=== PATIENT | female | born 1975 | race American Indian/Alaskan Native ===

== ENCOUNTER 2016-06-13 04:58 | Emergency (ER) | payer OTHER ==
[2016-06-13] MEDS ORDERED: CATAPRES ONE (05:39)
[2016-06-13] MEDS ORDERED: CATAPRES PO ONE ×2 (05:41→09:44)
--- NOTE | 2016-06-13 10:05 | XRay Report ---
Chest 2 views: History: Chest tightness shortness of breath. Findings: Normal cardiomediastinal silhouette. Trachea is midline. No consolidation, pneumothorax or pleural effusion. Impression: No acute cardiopulmonary findings.
[2016-06-13 10:38] LABS: Basophils % (Auto) 1.2 % (0.0-1.8); Eosinophils % (Auto) 5.4 % (0.0-4.3); Hematocrit 34.5 % (30.3-42.9); Hemoglobin 10.7 gm/dl (10.1-14.3); Mean Corpuscular HGB Conc 31 % (30-34); Mean Corpuscular Volume 78 fl (79-97); Platelet Count 463 K/mm3 (140-440); Red Blood Count 4.41 M/mm3 (3.65-5.03); White Blood Count 11.4 K/mm3 (4.5-11.0)
[2016-06-13 10:46] LABS: Mean Corpuscular Hemoglobin 24 pg (28-32); Red Cell Distribution Width 20.5 % (13.2-15.2)
[2016-06-13 10:54] LABS: Anion Gap 17 mmol/L; BUN/Creatinine Ratio 12.85; Blood Urea Nitrogen 9 mg/dL (7-17); Calcium 9.4 mg/dL (8.4-10.2); Carbon Dioxide 26 mmol/L (22-30); Chloride 95.9 mmol/L (98-107); Glucose 100 mg/dL (65-100); Sodium 135 mmol/L (137-145)
--- NOTE | 2016-06-13 11:23 | Emergency Department Report ---
HPI - General Chief Complaint: Upper Respiratory Infection Time Seen by Provider: 06/13/16 09:31 - HPI HPI: 41-year-old female presents today with cough, sore throat and associated chest tightness 3 days. Patient states this started as a dry cough 3 days ago and worsened yesterday with yellow-clear sputum. Patient was seen by primary care provider yesterday and diagnosed with an upper respiratory tract infection. She was given Augmentin and Tessalon Perles without relief. The patient also states that prior to primary care visit she was taking Cetrizine hydrochloride 10 mg and Proair for her dry cough. Patient states her cough is not allowing her to sleep. Denies fever, chills, chest pain, shortness of breath, abdominal pain, nausea, vomiting. Positive for history of hypertension and states her last dose of medication was this morning. Patient is currently on Losartan Potassium 50 mg by mouth daily and HCTZ 12.5 mg by mouth daily. Denies headache , visual changes, dizziness or confusion. ED Past Medical Hx - Past Medical History Previous Medical History?: Yes Hx Hypertension: Yes Hx Asthma: Yes Additional medical history: High cholesterol - Surgical History Past Surgical History?: Yes Additional Surgical History: Tubaligation, T&A - Social History Smoking Status: Never Smoker Substance Use Type: None - Medications Home Medications: Home Medications Medication Instructions Recorded Confirmed Last Taken Type Hydrochlorothiazide [Hctz] 25 mg PO DAILY 09/27/13 09/27/13 Unknown History Promethazine/Dextromethorphan 473 ml PO Q6H #1 bottle 06/13/16 Unknown Rx [Promethazine-Dm Solution] ED Review of Systems ROS: Stated complaint: ASTHMA Other details as noted in HPI Constitutional: denies: chills, fever, malaise Eyes: denies: eye pain ENT: throat pain, congestion. denies: ear pain Respiratory: cough. denies: shortness of breath, wheezing Cardiovascular: denies: chest pain, palpitations Endocrine: no symptoms reported Gastrointestinal: denies: abdominal pain, nausea, vomiting Skin: denies: rash Neurological: denies: headache, weakness Physical Exam - Physical Exam Vital Signs: Vital Signs 06/13/16 06/13/16 06/13/16 05:06 05:45 06:16 Temperature 98.9 F Pulse Rate 100 H 100 H 100 H Respiratory 20 Rate Blood Pressure 185/134 185/134 Blood Pressure 185/134 [Left] Blood Pressure 186/123 [Right] O2 Sat by Pulse 99 Oximetry 06/13/16 06/13/16 06/13/16 09:32 10:06 11:10 Temperature 98.4 F Pulse Rate 92 H 92 H 88 Respiratory 16 18 Rate Blood Pressure 167/139 Blood Pressure [Left] Blood Pressure 167/139 163/113 [Right] O2 Sat by Pulse 98 100 Oximetry Physical Exam: GENERAL: The patient is well-developed and well-nourished. Patient is in NAD. HEAD: Normocephalic. Atraumatic. EYES: PERRL. EARS: External auditory canals and tympanic membranes clear; hearing grossly intact. NOSE: Normal nasal mucosa with no nasal discharge. Mildly tender upon palpation of the maxillary sinuses. THROAT: No erythema, swelling or exudates. NECK: Supple, nontender, without lymphadenopathy. CHEST/LUNGS: Clear to auscultation throughout. HEART/CARDIOVASCULAR: Regular rate and rhythm. No murmurs, rubs or gallops. ABDOMEN: Abdomen is soft, nontender. Bowel sounds normoactive. No guarding or rebound tenderness. EXTREMITIES: Peripheral pulses intact. Capillary refill less than 2 seconds. NEURO: Alert and oriented x 3. Normal gait. ED Course Vital Signs 06/13/16 06/13/16 06/13/16 05:06 05:45 06:16 Temperature 98.9 F Pulse Rate 100 H 100 H 100 H Respiratory 20 Rate Blood Pressure 185/134 185/134 Blood Pressure 185/134 [Left] Blood Pressure 186/123 [Right] O2 Sat by Pulse 99 Oximetry 06/13/16 06/13/16 06/13/16 09:32 10:06 11:10 Temperature 98.4 F Pulse Rate 92 H 92 H 88 Respiratory 16 18 Rate Blood Pressure 167/139 Blood Pressure [Left] Blood Pressure 167/139 163/113 [Right] O2 Sat by Pulse 98 100 Oximetry ED Medical Decision Making - Lab Data Result diagrams: 06/13/16 10:02 06/13/16 10:02 Vital Signs 06/13/16 06/13/16 06/13/16 05:06 05:45 06:16 Temperature 98.9 F Pulse Rate 100 H 100 H 100 H Respiratory 20 Rate Blood Pressure 185/134 185/134 Blood Pressure 185/134 [Left] Blood Pressure 186/123 [Right] O2 Sat by Pulse 99 Oximetry 06/13/16 06/13/16 06/13/16 09:32 10:06 11:10 Temperature 98.4 F Pulse Rate 92 H 92 H 88 Respiratory 16 18 Rate Blood Pressure 167/139 Blood Pressure [Left] Blood Pressure 167/139 163/113 [Right] O2 Sat by Pulse 98 100 Oximetry 06/13/16 13:12 Temperature Pulse Rate 78 Respiratory 16 Rate Blood Pressure Blood Pressure [Left] Blood Pressure 173/107 [Right] O2 Sat by Pulse 100 Oximetry Lab Results 06/13/16 06/13/16 06/13/16 Range/Units 10:02 10:02 10:02 WBC 11.4 H (4.5-11.0) K/mm3 RBC 4.41 (3.65-5.03) M/mm3 Hgb 10.7 (10.1-14.3) gm/dl Hct 34.5 (30.3-42.9) % MCV 78 L (79-97) fl MCH 24 L (28-32) pg MCHC 31 (30-34) % RDW 20.5 H (13.2-15.2) % Plt Count 463 H (140-440) K/mm3 Lymph % (Auto) 20.6 (13.4-35.0) % [place] % (Auto) 7.0 (0.0-7.3) % Eos % (Auto) 5.4 H (0.0-4.3) % Baso % (Auto) 1.2 (0.0-1.8) % Lymph # 2.3 (1.2-5.4) K/mm3 [place] # 0.8 (0.0-0.8) K/mm3 Eos # 0.6 H (0.0-0.4) K/mm3 Baso # 0.1 (0.0-0.1) K/mm3 Seg Neutrophils % 65.8 (40.0-70.0) % Seg Neutrophils # 7.5 (1.8-7.7) K/mm3 Sodium 135 L (137-145) mmol/L Potassium 4.0 (3.6-5.0) mmol/L Chloride 95.9 L (98-107) mmol/L Carbon Dioxide 26 (22-30) mmol/L Anion Gap 17 mmol/L BUN 9 (7-17) mg/dL Creatinine 0.7 (0.7-1.2) mg/dL Estimated GFR > 60 ml/min BUN/Creatinine Ratio 12.85 % Glucose 100 (65-100) mg/dL Calcium 9.4 (8.4-10.2) mg/dL Total Creatine Kinase 306 H (30-135) units/L CK-MB (CK-2) 2.6 (0.0-4.0) ng/mL CK-MB (CK-2) Rel Index 0.8 (0-4) Troponin T < 0.010 (0.00-0.029) ng/mL - Radiology Data Radiology results: report reviewed Chest x-ray: Normal cardiomediastinal also wet. Trachea is midline. No consolidation, pneumothorax or pleural effusion. - Medical Decision Making 41-year-old female presents today with sore throat, cough and cough associated chest tightness. Patient is currently taking Augmentin and Tessalon Perles. The patient's blood pressure at the time of arrival was 185/134. Patient has been given clonidine 0.2 mg. Her chest x-ray results are negative. Discussed patient's lab results with Dr. Cornelius, who is comfortable with discharging patient home as long as the blood pressure is trending down since she is asymptomatic. Patient is highly recommended to follow up with her primary care provider for change in blood pressure medication. She is recommended to take her blood pressure medications as prescribed. Patient is in no acute distress at this time. She will be discharged home and is encouraged to follow up with a primary care provider. She is recommended to continue her Augmentin and discontinue Tessalon Perles. She will be sent home on cough medicine and is encouraged to return to the emergency room for any worsening symptoms. Critical care attestation.: If time is entered above; I have spent that time in minutes in the direct care of this critically ill patient, excluding procedure time. ED Disposition Clinical Impression: URI (upper respiratory infection) Qualifiers: URI type: unspecified URI Qualified Code(s): J06.9 - Acute upper respiratory infection, unspecified HTN (hypertension) Qualifiers: Hypertension type: essential hypertension Qualified Code(s): I10 - Essential ( primary) hypertension Disposition: DISCHARGED TO HOME OR SELFCARE Is pt being admited?: No Does the pt Need Aspirin: No Condition: Stable Instructions: Hypertension (ED), Upper Respiratory Infection (ED) Additional Instructions: Follow-up with primary care provider. Return to the emergency department if symptoms worsen. Prescriptions: Promethazine/Dextromethorphan [Promethazine-Dm Solution] 473 ml PO Q6H #1 bottle Referrals: PRIMARY CARE, [Primary Care Provider] - 3-5 Days [facility] [Outside] - 3-5 Days Forms: Work/School Release Form(ED) Time of Disposition: 13:28
[2016-06-13 12:14] LABS: Creatine Kinase MB 2.6 ng/mL (0.0-4.0)
[2016-06-13 12:15] LABS: Creatine Kinase 306 units/L (30-135)
[2016-06-13 13:14] VITALS: BP 173/107
== END 2016-06-13 13:38 | disposition home or self-care (01) ==
LOC: ED 04:58
DX: J06.9 Acute upper respiratory infection, unspecified (principal); I10 Essential (primary) hypertension; J45.909 Unspecified asthma, uncomplicated; E78.00 Pure hypercholesterolemia, unspecified
CPT/HCPCS: 36415; 71020; 80048; 82550; 82553; 84484; 85025; 93005; 93010; 99284

== ENCOUNTER 2017-08-22 19:58 | Emergency (ER) | payer SELFPAY ==
[2017-08-22 20:09] VITALS: BP 139/90
[2017-08-22] MEDS ORDERED: MOTRIN PO ONE (20:14)
[2017-08-22] MEDS ORDERED: MOTRIN ONE (20:15)
--- NOTE | 2017-08-22 20:57 | XRay Report ---
FINAL REPORT PROCEDURE: XR FOOT 3+V RT TECHNIQUE: RIGHT foot radiographs, AP, lateral, and oblique views. CPT 03281 HISTORY: right heel pain. COMPARISON: No prior studies are available for comparison. FINDINGS: Moderate size calcaneal spur seen at the plantar fascia insertion site. No radiopaque foreign bodies are seen. No evidence of fracture or dislocation. Bone density appears normal. Joint spaces are well preserved. IMPRESSION: Moderate size calcaneal spur is present otherwise negative exam..
[2017-08-22] MEDS ORDERED: TYLENOL ONE (23:46)
[2017-08-22] MEDS ORDERED: TYLENOL PO ONE (23:50)
--- NOTE | 2017-08-23 02:37 | Emergency Department Report ---
HPI - General Chief Complaint: Extremity Injury, Lower Time Seen by Provider: 08/23/17 01:14 - HPI HPI: Patient reports that she has been having pain to her right heel 1 month. Pain is 6 out of 10 worse with walk-in and hospice administrator bed or resting. Denies any radiation of pain. Pain is achy. Taking [id number] pain medication without any relief. Denies any injury or trauma to side. ED Past Medical Hx - Past Medical History Previous Medical History?: Yes Hx Hypertension: Yes Hx Asthma: Yes Additional medical history: High cholesterol - Surgical History Past Surgical History?: Yes Additional Surgical History: Tubaligation, T&A - Family History Family history: hypertension - Social History Smoking Status: Never Smoker Substance Use Type: None - Medications Home Medications: Home Medications Medication Instructions Recorded Confirmed Last Taken Type Hydrochlorothiazide [Hctz] 25 mg PO DAILY 09/27/13 09/27/13 Unknown History Promethazine/Dextromethorphan 473 ml PO Q6H #1 bottle 06/13/16 Unknown Rx [Promethazine-Dm Solution] traMADol [Ultram 50 MG tab] 50 mg PO Q6HR PRN #12 tablet 08/23/17 Unknown Rx ED Review of Systems ROS: Stated complaint: RIGHT FOOT PAIN Other details as noted in HPI Comment: All other systems reviewed and negative Constitutional: no symptoms reported Respiratory: no symptoms reported Cardiovascular: denies: chest pain, palpitations, dyspnea on exertion, edema, syncope, paroxysmal nocturnal dyspnea Musculoskeletal: arthralgia. denies: back pain, joint swelling, myalgia Skin: denies: rash Neurological: denies: headache, weakness, numbness, paresthesias, abnormal gait Physical Exam - Physical Exam Vital Signs: Vital Signs 08/22/17 08/22/17 19:59 20:09 Temperature 98.2 F 98.2 F Pulse Rate 96 H 92 H Respiratory 18 16 Rate Blood Pressure 139/90 139/90 O2 Sat by Pulse 99 100 Oximetry General: This is a 42-year-old female well-nourished well-developed in no acute distress Physical Exam: Head: Normocephalic, atraumatic, no abrasion, no bruising and no contusion. Eyes: Biateral pupils equal and reactive to light, bilateral EOM intact.. Bilateral conjunctival and sclera without injection, normal accommodation. No nystagmus Neck: Supple, No Cervical adenopathy, full range of motion and no C-spine tenderness. No swelling or tracheal deviation normal reflexes Cardiovascular: S1, S2. Regular rate and rhythm. No murmur. Capillary refill is less then 3 seconds. Lungs: Clear to auscultate bilaterally. No rhonchi, wheezes or rales. No chest wall tenderness. No chest contusion. No bruising to chest. MSK: Strength 5/5 in all extremities. No joint deformity or crepitus. Normal inspection. Full range of motion to all extremities. No laceration, abrasion or ecchymotic area noted. Extremities: No clubbing, cyanosis or edema. +2 pulses. No neurovascular compromise. No bony deformity noted. Some tenderness to palpate the right heel. No erythema or indurated area noted. No soft tissue swelling noted Skin: Clean, dry and intact. No rash or lesions. Psych: Normal mood and behavior ED Course Vital Signs 08/22/17 08/22/17 19:59 20:09 Temperature 98.2 F 98.2 F Pulse Rate 96 H 92 H Respiratory 18 16 Rate Blood Pressure 139/90 139/90 O2 Sat by Pulse 99 100 Oximetry - Reevaluation(s) Reevaluation #1: 08/23/17 02:51 She received ibuprofen at 2015 800 mg in triage and she requested more pain medication and she received Tylenol 975 mg at approximately 2351 and her pain has gone down but not complete relief. ED Medical Decision Making - Radiology Data Radiology results: report reviewed X-ray of right foot reveals moderate sized calcaneal spur is present otherwise negative exam. - Medical Decision Making ED course: Patient here report pain to the back of her heel 1 month worse with walking. X-ray finance for moderate sized calcaneal spur. Please refer to radiology section for complete report. Patient was given Motrin 800 mg in triage area and additional Tylenol 975 mg in ED room. Right heel pain is better but not completely resolved. I discussed x-ray report with patient and told her that she needs to follow up with slot technician for further evaluation and treatment. She voiced understanding and patient discharged home a prescription for Ultram. Critical care attestation.: If time is entered above; I have spent that time in minutes in the direct care of this critically ill patient, excluding procedure time. ED Disposition Clinical Impression: Arthralgia of right foot, Calcaneal spur of right foot Disposition: DC-01 TO HOME OR SELFCARE Is pt being admited?: No Does the pt Need Aspirin: No Condition: Stable Instructions: Arthralgia (ED) Additional Instructions: x-ray shows that you have bone spur at the back of your heel on the right side and he will need to follow up with slot technician for evaluation and treatment. Take tramadol for pain but please do not drive or operate heavy machinery while taking this medication as it causes drowsiness Apply ice to affected area Prescriptions: traMADol [Ultram 50 MG tab] 50 mg PO Q6HR PRN #12 tablet PRN Reason: Pain Referrals: PRIMARY CARE, [Primary Care Provider] - 2-3 Days ROSELINE OLSON DPM [Staff Physician] - 2-3 Days
== END 2017-08-23 03:10 | disposition home or self-care (01) ==
LOC: ED 19:58
DX: M77.31 Calcaneal spur, right foot (principal); M79.671 Pain in right foot

== ENCOUNTER 2019-10-03 09:41 | Outpatient (CLI) | payer BC ==
--- NOTE | 2019-10-03 12:45 | Mammography Report ---
DIGITAL SCREENING MAMMOGRAM WITH CAD, 10/03/2019 INDICATION: Routine screening mammography. TECHNIQUE: Digital bilateral 2D mammography was obtained in the craniocaudal and mediolateral obliq ue projections. This examination was interpreted with the benefit of Computer-Aided Detection analysi s. COMPARISON: None. This is a baseline mammogram. FINDINGS: Breast Density: The breasts are heterogeneously dense, which may obscure small masses. Bilateral parenchymal asymmetries require additional imaging. No architectural distortion or suspicio us calcifications. IMPRESSION: Bilateral asymmetries requiring additional imaging. Recommend recall for bilateral spot c ompression views and bilateral breast ultrasound if needed. Follow up recommendation: Special View: Spot Category 0: Incomplete. Needs additional imaging evaluation and/or prior mammograms for comparison. A "normal" or negative report should not discourage follow up or biopsy of a clinically significant f inding. A written summary of these findings will be mailed to the patient. The patient will be entered into a mammography reporting system which will generate a reminder letter for the patient's next appointmen t at the appropriate interval. The [employer] recommends yearly mammograms starting at age 40 and continuing as l ally as a woman is in good health. Breast MRI is recommended for women with an approximate 20-25% or greater lifetime risk of breast cancer, including women with a strong family history of breast or ova melba cancer or who have been treated for Hodgkin's disease. Signer Name: Avni Mancuso MD Signed: 10/03/2019 12:40 PM Workstation Name: [id number]
== END 2019-10-03 09:42 | disposition home or self-care (01) ==
LOC: SPVWC 09:41
PROVIDERS: ATTEND Internal Medicine Hematology & Oncology
DX: Z12.31 Encounter for screening mammogram for malignant neoplasm of breast (principal); N20.0 Calculus of kidney; N92.0 Excessive and frequent menstruation with regular cycle; E66.9 Obesity, unspecified; D25.9 Leiomyoma of uterus, unspecified; Z79.899 Other long term (current) drug therapy
CPT/HCPCS: 77067

== ENCOUNTER 2021-06-10 15:07 | Outpatient (CLI) | payer BC ==
--- NOTE | 2021-06-11 11:06 | Mammography Report ---
DIGITAL SCREENING MAMMOGRAM WITH CAD, 06/10/2021 CLINICAL INFORMATION / INDICATION: Routine screening mammography. SCREEN FOR BREAST CANCER TECHNIQUE: Digital bilateral 2D mammography was obtained in the craniocaudal and mediolateral obliqu e projections. This examination was interpreted with the benefit of Computer-Aided Detection analysis . COMPARISON: 10/03/2019 FINDINGS: Breast Density: The breasts are heterogeneously dense, which may obscure small masses. No dominant mass, suspicious calcifications, or architectural distortion in either breast. IMPRESSION: No mammographic evidence of malignancy. Follow up recommendation: Routine yearly BI-RADS Category 1: NEGATIVE A "normal" or negative report should not discourage follow up or biopsy of a clinically significant f inding. A written summary of these findings will be mailed to the patient. The patient will be entered into a mammography reporting system which will generate a reminder letter for the patient's next appointmen t at the appropriate interval. The [employer] recommends yearly mammograms starting at age 40 and continuing as l ally as a woman is in good health. Breast MRI is recommended for women with an approximate 20-25% or greater lifetime risk of breast cancer, including women with a strong family history of breast or ova melba cancer or who have been treated for Hodgkin's disease. Signer Name: Alejandro Delgado MD Signed: 06/11/2021 11:01 AM Workstation Name: [id number]
== END 2021-06-10 15:08 | disposition home or self-care (01) ==
LOC: MAMMO 15:07
PROVIDERS: ATTEND Family Medicine
DX: Z12.31 Encounter for screening mammogram for malignant neoplasm of breast (principal)
CPT/HCPCS: 77067